=== PATIENT | female | born 1945 | race Caucasian/White ===

== ENCOUNTER 2017-05-09 08:08 | Outpatient (CLI) | payer MEDICARE, OTHER ==
[2017-05-09 09:23] LABS: CHOL/HDL RATIO 3.4 (<4.4); CHOLESTEROL 292 mg/dL; HDL CHOLESTEROL 87 mg/dL; LDL/HDL RATIO 2.1 (<4.4); TRIGLYCERIDES 128 mg/dL; VLDL CHOLESTEROL 26 mg/dL
== END 2017-05-09 08:09 | disposition home or self-care (01) ==
LOC: LAB 08:08
PROVIDERS: ATTEND Physician Assistant Medical
DX: E78.5 Hyperlipidemia, unspecified (principal)
CPT/HCPCS: 36415; 80061